=== PATIENT | female | born 1930 | race Caucasian/White ===

== ENCOUNTER 2020-08-01 00:55 | Inpatient (IN) | payer MEDICARE ==
[2020-08-01] MEDS ORDERED: SODIUM CHLORIDE 0.9% 500 ML 500 ML IV STA (01:08)
[2020-08-01] MEDS ORDERED: SODIUM CHLORIDE 0.9% 1,000 ML IV STA (01:08)
[2020-08-01] MEDS ORDERED: MORPHINE SULFATE 4 MG/ML SYRINGE IV STA (01:08)
--- NOTE | 2020-08-01 01:17 | ED ---
Fall HPI - General Stated Complaint: ankle injury Time Seen by Provider: 08/01/20 01:08 Source: EMS, RN notes reviewed, old records reviewed Limitations: no limitations - History of Present Illness Initial Comments: This is an 89-year-old female with no significant orthopedicmedical historycoming with fall history of falls. History of high blood pressure cholesterol, no blood thinners. Patient significant injury to right ankle Injury happened about an hour prior to arrival, patient had a slip and fall of 1 the bathroom after waking from sleep. Patient denying any significant pain on arrival to the emergency department no hitting her head or loss of consciousness or any other pain or injury aside from that right ankle MD Complaint: fall -: hour(s) Fall From: standing When Fall Occurred: 1 hour [employer] WORK[employer] Fall Witnessed: no Place Fall Occurred: home Loss of Consciousness: none Prolonged Down Time?: no Symptoms Prior to Fall: none Location - Extremities: Right: Ankle (severe deformity) Severity: severe Severity scale (1-10): 5 Quality: stabbing, tingling Context: tripped/slipped Associated Symptoms: denies - Related Data Home Medications Medication Instructions Recorded Confirmed Levothyroxine Sodium [Synthroid] 75 mcg PO HS 08/01/20 08/01/20 Lovastatin [Mevacor] 10 mg PO HS 08/01/20 08/01/20 Zolpidem [Ambien] 5 mg PO HS PRN 08/01/20 08/01/20 Allergies Allergy/AdvReac Type Severity Reaction Status Date / Time No Known Allergies Allergy Verified 08/01/20 01:18 Review of Systems ROS Statement: Those systems with pertinent positive or pertinent negative responses have been documented in the HPI. ROS Other: All systems not noted in ROS Statement are negative. General Exam - General Exam Comments Initial Comments: significant fracture dislocation of Right Ankle General appearance: alert, in no apparent distress Head exam: Present: atraumatic, normocephalic, normal inspection Eye exam: Present: normal appearance, PERRL, EOMI. Absent: scleral icterus, conjunctival injection, periorbital swelling ENT exam: Present: normal exam, mucous membranes moist Neck exam: Present: normal inspection. Absent: tenderness, meningismus, lymphadenopathy Respiratory exam: Present: normal lung sounds bilaterally. Absent: respiratory distress, wheezes, rales, rhonchi, stridor Cardiovascular Exam: Present: regular rate, normal rhythm, normal heart sounds. Absent: systolic murmur, diastolic murmur, rubs, gallop, clicks GI/Abdominal exam: Present: soft, normal bowel sounds. Absent: distended, tenderness, guarding, rebound, rigid Extremities exam: Present: normal inspection, full ROM, normal capillary refill. Absent: tenderness, pedal edema, joint swelling, calf tenderness Back exam: Present: normal inspection Neurological exam: Present: alert, oriented X3, CN II-XII intact Psychiatric exam: Present: normal affect, normal mood Skin exam: Present: warm, dry, intact, normal color. Absent: rash Course Vital Signs 08/01/20 00:56 Temperature 98.2 F Pulse Rate 86 Respiratory 14 Rate Blood Pressure 166/77 O2 Sat by Pulse 95 Oximetry - Reevaluation(s) Reevaluation #1: 08/01/20 02:16 attic record is reviewed Reevaluation #2: 08/01/20 02:16 ankle was reduced without significant distress, patient does have good distalas well as capillary refill - Consultations Consultation #1: spoke w Dr Jaimes re fracture and he will admit Procedures - Orthopedic Fracture Reduction Fracture #1 Consent Obtained: verbal consent Side: right Fracture Reduction Location: tibia, fibula Technique: direct manipulation, traction/counter-traction Post Reduction X-rays Demonstrate: acceptable reduction Post-Reduction Neuro Exam: intact Post-Reduction Vascular Exam: intact Splint Applied: Yes Patient Tolerated Procedure: well - Orthopedic Joint Reduction Joint #1 Consent Obtained: verbal consent Side: right Joint Reduction Location: ankle Technique Used: traction/counter-traction, direct manipulation Post-Reduction Neuro Exam: intact Post-Reduction Vascular Exam: intact Post Reduction X-Ray Obtained: Yes Post Reduction X-Ray Results: reduced Splint Applied: Yes Patient Tolerated Procedure: well Medical Decision Making - Medical Decision Making 89 female to the ER with positive right ankle fracture, tib-fib , trimalleolar fracture open with ankle dislocation, requiring ortho and surgical intervention - Lab Data Result diagrams: 08/01/20 01:22 08/01/20 01:22 Lab Results 08/01/20 08/01/20 08/01/20 Range/Units 01:22 01:22 01:22 WBC 7.6 (3.8-10.6) k/uL RBC 4.69 (3.80-5.40) m/uL Hgb 13.0 (11.4-16.0) gm/dL Hct 41.9 (34.0-46.0) % MCV 89.4 (80.0-100.0) fL MCH 27.8 (25.0-35.0) pg MCHC 31.1 (31.0-37.0) g/dL RDW 14.6 (11.5-15.5) % Plt Count 287 (150-450) k/uL MPV 8.1 Neutrophils % 72 % Lymphocytes % 14 % Monocytes % 8 % Eosinophils % 2 % Basophils % 2 % Neutrophils # 5.5 (1.3-7.7) k/uL Lymphocytes # 1.1 (1.0-4.8) k/uL Monocytes # 0.6 (0-1.0) k/uL Eosinophils # 0.2 (0-0.7) k/uL Basophils # 0.2 (0-0.2) k/uL PT 10.8 (9.0-12.0) sec INR 1.0 (<1.2) APTT 24.0 (22.0-30.0) sec Sodium 135 L (137-145) mmol/L Potassium 5.5 H (3.5-5.1) mmol/L Chloride 102 (98-107) mmol/L Carbon Dioxide 31 H (22-30) mmol/L Anion Gap 2 mmol/L BUN 28 H (7-17) mg/dL Creatinine 0.76 (0.52-1.04) mg/dL Est GFR (CKD-EPI)AfAm 81 (>60 ml/min/1.73 sqM) Est GFR (CKD-EPI)NonAf 70 (>60 ml/min/1.73 sqM) Glucose 103 H (74-99) mg/dL Calcium 10.3 H (8.4-10.2) mg/dL Phosphorus 3.8 (2.5-4.5) mg/dL Magnesium 2.5 H (1.6-2.3) mg/dL Total Bilirubin 0.7 (0.2-1.3) mg/dL AST 27 (14-36) U/L ALT 10 (4-34) U/L Alkaline Phosphatase 142 H (38-126) U/L Creatine Kinase 40 (30-135) U/L Total Protein 6.4 (6.3-8.2) g/dL Albumin 3.7 (3.5-5.0) g/dL - Radiology Data Radiology results: report reviewed (x-ray right ankle is tib-fib fracture likely trimalleolar with right ankle dislocation), image reviewed Disposition Clinical Impression: Fall, Open fracture of right tibia and fibula, Dislocation of right ankle joint Disposition: ADMITTED IP TO THIS [facility] Condition: Good Is patient prescribed a controlled substance at d/c from ED?: No Referrals: Leni Turner MD [Primary Care Provider] - 1-2 days
[2020-08-01 01:48] LABS: Basophils # (A) 0.2 k/uL (0-0.2); Basophils % (A) 2 %; Eosinophils # (A) 0.2 k/uL (0-0.7); Eosinophils % (A) 2 %; HCT 41.9 % (34.0-46.0); Lymphocytes # (A) 1.1 k/uL (1.0-4.8); Lymphocytes % (A) 14 %; MCH 27.8 pg (25.0-35.0); MCHC 31.1 g/dL (31.0-37.0); MCV 89.4 fL (80.0-100.0); Mean Platelet Volume 8.1; Monocytes # (A) 0.6 k/uL (0-1.0); Monocytes % (A) 8 %; Neutrophils # (A) 5.5 k/uL (1.3-7.7); Neutrophils % (A) 72 %; Platelet Count 287 k/uL (150-450); RBC 4.69 m/uL (3.80-5.40); RDW 14.6 % (11.5-15.5); WBC 7.6 k/uL (3.8-10.6)
[2020-08-01 01:56] LABS: Albumin 3.7 g/dL (3.5-5.0); Calcium 10.3 mg/dL (8.4-10.2); Phosphorus 3.8 mg/dL (2.5-4.5); Total Bilirubin 0.7 mg/dL (0.2-1.3); Total Protein 6.4 g/dL (6.3-8.2)
[2020-08-01 01:57] LABS: Prothrombin Time 10.8 sec (9.0-12.0)
[2020-08-01 01:58] LABS: Magnesium 2.5 mg/dL (1.6-2.3); Potassium 5.5 mmol/L (3.5-5.1)
--- NOTE | 2020-08-01 02:02 | XR ---
EXAM: XR Right Ankle Complete, 3 or More Views CLINICAL HISTORY: ITS.REASON XR Reason: fall TECHNIQUE: Frontal, lateral and oblique views of the right ankle. COMPARISON: No relevant prior studies available. IMPRESSION: Comminuted Fracture of the distal tibia and fibula with dislocation of the ankle joint. Likely trimalleolar fracture.
[2020-08-01] MEDS ORDERED: MORPHINE SULFATE 4 MG/ML SYRINGE IVP PRN (02:15)
[2020-08-01] MEDS ORDERED: ZOLPIDEM 10 MG TAB PO STA (03:17)
[2020-08-01] MEDS ORDERED: ZOLPIDEM 5 MG TAB PO STA (03:19)
[2020-08-01 04:27] LABS: Basophils # (A) 0.1 k/uL (0-0.2); Basophils % (A) 1 %; Eosinophils # (A) 0.1 k/uL (0-0.7); Eosinophils % (A) 1 %; HCT 37.3 % (34.0-46.0); HGB 11.8 gm/dL (11.4-16.0); Hypochromasia Slight; Lymphocytes # (A) 1.7 k/uL (1.0-4.8); Lymphocytes % (A) 16 %; MCH 28.5 pg (25.0-35.0); MCHC 31.7 g/dL (31.0-37.0); Mean Platelet Volume 8.3; Monocytes # (A) 0.6 k/uL (0-1.0); Monocytes % (A) 6 %; Neutrophils # (A) 7.7 k/uL (1.3-7.7); Neutrophils % (A) 74 %; Platelet Count 260 k/uL (150-450); RBC 4.14 m/uL (3.80-5.40); RDW 14.7 % (11.5-15.5); WBC 10.4 k/uL (3.8-10.6)
[2020-08-01] MEDS ORDERED: IV FLUID CONTINUATION 775 ML IV ONE (11:09)
[2020-08-01 11:10] LABS: Potassium 5.6 mmol/L (3.5-5.1)
[2020-08-01 12:04] LABS: African American GFR (CKD) >90 (>60 ml/min/1.73 sqM); Anion Gap 4 mmol/L; Blood Urea Nitrogen 21 mg/dL (7-17); Calcium 9.4 mg/dL (8.4-10.2); Carbon Dioxide 30 mmol/L (22-30); Chloride 105 mmol/L (98-107); Glucose 93 mg/dL (74-99); Non-African American GFR(CKD) 80 (>60 ml/min/1.73 sqM); Potassium 4.3 mmol/L (3.5-5.1); Sodium 139 mmol/L (137-145)
[2020-08-01] MEDS ORDERED: MIDAZOLAM 2 MG/2 ML VIAL ONE (12:46)
[2020-08-01] MEDS ORDERED: ceFAZolin 1,000 MG in SODIUM CHLORIDE 0.9% 1,000 ML IRRIGATION ONE (13:39)
[2020-08-01] MEDS ORDERED: LACTATED RINGERS 1,000 ML IV ONE (14:30)
[2020-08-01] MEDS ORDERED: traMADol 50 MG TAB PO PRN (15:31)
[2020-08-01] MEDS ORDERED: HYDROcodone/APAP 5-325MG 1 EACH TAB PO PRN (15:31)
[2020-08-01] MEDS ORDERED: NALOXONE 0.4 MG/ML 1 ML VIAL IV PRN (15:31)
[2020-08-01] MEDS ORDERED: ONDANSETRON 4 MG/2 ML VIAL IVP PRN (15:31)
[2020-08-01] MEDS ORDERED: ACETAMINOPHEN TAB 325 MG TAB PO PRN (15:31)
[2020-08-01] MEDS ORDERED: HYDROmorphone 0.2 MG/1 ML SYRINGE IVP PRN (15:31)
[2020-08-01] MEDS ORDERED: diazePAM 5 MG TAB PO PRN (15:31)
[2020-08-01] MEDS ORDERED: NA PHOS,M-B/NA PHOS,DI-BA 133 ML ENEMA RECTAL PRN (15:31)
[2020-08-01] MEDS ORDERED: HYDROmorphone 0.5 MG/0.5 ML SYRINGE IVP PRN ×2 (15:31)
[2020-08-01] MEDS ORDERED: HYDROcodone/APAP 10-325MG 1 EACH TAB PO PRN (15:31)
[2020-08-01] MEDS ORDERED: MAGNESIUM HYDROXIDE 2,400 MG/10 ML CUP PO PRN (15:31)
[2020-08-01] MEDS ORDERED: bisacodyL 10 MG SUPP RECTAL PRN (15:31)
--- NOTE | 2020-08-01 15:52 | P.HPOR ---
History of Present Illness H&P Date: 08/01/20 Chief Complaint: Right Ankle fracture Patient is an 89 yo female admitted through the ED early this morning 08/01/20 after a fall at home. She lives at home alone apparently and has a history of falls. She was transported to the ED after her most recent fall resulted in injury to her right ankle with pain, deformity an inability to ambulate. She was found to have an open fracture and admitted for orthopedic intervention. She has pain at the right ankle as expected. She has no numbness or other new complaints. Review of Systems All systems: negative Constitutional: Denies chills, Denies fever Eyes: denies blurred vision, denies pain Ears, nose, mouth and throat: Denies headache, Denies sore throat Cardiovascular: Denies chest pain, Denies shortness of breath Respiratory: Denies cough Gastrointestinal: Denies abdominal pain, Denies diarrhea, Denies nausea, Denies vomiting Genitourinary: Denies dysuria, Denies hematuria Musculoskeletal: Denies myalgias Integumentary: Denies pruritus, Denies rash Neurological: Denies numbness, Denies weakness Psychiatric: Denies anxiety, Denies depression Endocrine: Denies fatigue, Denies weight change Past Medical History Past Medical History: Hypertension, Thyroid Disorder History of Any Multi-Drug Resistant Organisms: None Reported Past Surgical History: Appendectomy, Orthopedic Surgery Past Psychological History: No Psychological Hx Reported Smoking Status: Never smoker Past Alcohol Use History: None Reported Past Drug Use History: None Reported Medications and Allergies Home Medications Medication Instructions Recorded Confirmed Type Calcium Carbonate/Vitamin D3 1 tab PO DAILY 08/01/20 08/01/20 History [Calcium 500-Vit D3 200 Tablet] Levothyroxine Sodium [Synthroid] 75 mcg PO HS 08/01/20 08/01/20 History Lovastatin [Mevacor] 10 mg PO HS 08/01/20 08/01/20 History Magnesium Chloride [Mag64] 64 mg PO DAILY 08/01/20 08/01/20 History Multivitamins, Thera [Multivitamin 1 tab PO DAILY 08/01/20 08/01/20 History (formulary)] [place]-3 Fatty Acids/Fish Oil [Fish 1 cap PO DAILY 08/01/20 08/01/20 History Oil 1,000 mg Softgel] Zolpidem [Ambien] 10 mg PO HS PRN 08/01/20 08/01/20 History Allergies Allergy/AdvReac Type Severity Reaction Status Date / Time No Known Allergies Allergy Verified 08/01/20 08:06 Physical Examination Inspection of right lower extremity and ankle shows reduced right ankle with 5cm laceration on medial aspect of ankle with exposed fracture of medial malleolus. There is mild bleeding. No evidence of infection. No other wounds or erythema. The knee is not swollen and nontender. The calf is SNT. Neuro vascular status is intact throughout right lower extremity Results Xrays of right ankle show a bimalleolar ankle fracture dislocation - Labs Labs: Abnormal Lab Results - Last 24 Hours (Table) 08/01/20 08/01/20 08/01/20 Range/Units 01:22 01:22 11:40 Sodium 135 L 136 L (137-145) mmol/L Potassium 5.5 H 5.6 H (3.5-5.1) mmol/L Carbon Dioxide 31 H (22-30) mmol/L BUN 28 H 21 H (7-17) mg/dL Glucose 103 H (74-99) mg/dL Calcium 10.3 H (8.4-10.2) mg/dL Magnesium 2.5 H (1.6-2.3) mg/dL Alkaline Phosphatase 142 H (38-126) U/L H & H 08/01/20 08/01/20 Range/Units 01:22 04:22 Hgb 13.0 11.8 (11.4-16.0) gm/dL Hct 41.9 37.3 (34.0-46.0) % Coagulation 08/01/20 Range/Units 01:22 INR 1.0 (<1.2) Result Diagrams: 08/01/20 04:22 08/01/20 11:40 - Diagnostic results Ankle/Foot x-ray: report reviewed, image reviewed Assessment and Plan (1) Open fracture of right tibia and fibula Narrative/Plan: Patient has been seen and reviewed by Dr. cho. He has recommended proceeding with surgical intervention including ORIF of right ankle. Plan is to proceed with surgery today after which she will be placed in splint and be nonweightbearing. Medicine will be consulted for medical management and she will need placement. Current Visit: Yes Status: Acute Priority: Medium Code(s): S82.201B - UNSP FX SHAFT OF RIGHT TIBIA, INIT FOR OPN FX TYPE I/2; S82.401B - UNSP FRACTURE OF SHAFT OF R FIBULA, INIT FOR OPN FX TYPE I/2 SNOMED Code(s): 238688937 Time with Patient: Less than 30
[2020-08-01] MEDS ORDERED: ZOLPIDEM 10 MG TAB PO PRN (16:40)
[2020-08-01] MEDS: LACTATED RINGERS 1,000 ML IV SCH (16:50)
[2020-08-01] MEDS: ASPIRIN 81 MG PO SCH (20:18)
[2020-08-01] MEDS: LEVOTHYROXINE 75 MCG TAB PO SCH (20:18)
[2020-08-01] MEDS: ATORVASTATIN 10 MG TAB PO SCH (20:18)
[2020-08-01] MEDS: SENNOSIDES-DOCUSATE SODIUM 1 EACH TAB PO SCH (20:18)
--- NOTE | 2020-08-01 23:02 | P.CONS ---
History of Present Illness - Reason for Consult Consult date: 08/01/20 Medical management Requesting physician: Nayan Jaimes - Chief Complaint Right ankle injury - History of Present Illness Consultation: This is a very pleasant 89-year-old patient of Dr. Leni Turner. Patient is taking care of for Plavix when she tried to jump from the [place] bed onto the road. She missed a step and took a fall injuring her right ankle. X-ray showed a comminuted fracture of the distal tibia and fibula with dislocation of the ankle joint. Likely trimalleolar fracture. Early today patient underwent surgical repair of the same. Dressing in place. Pain is controlled. No nausea vomiting. Patient normally slowly is able to get from the hospital he denies any cardiac history. Chronic stable medical conditions include hypertension, hypothyroid, insomnia. Arthritis. No chest pain or shortness of breath. Review of systems: GEN.: Tired EYES: None HEENT: Decreased hearing NECK: None RESPIRATORY: None CARDIOVASCULAR: None GASTROINTESTINAL: None GENITOURINARY: None MUSCULOSKELETAL: [Joint pains LYMPHATICS: None HEMATOLOGICAL: None PSYCHIATRY: None NEUROLOGICAL: None Past medical history to include: Hypertension, hypothyroid, insomnia osteoarthritis Social history: Lives alone. Sometimes uses a walker. No history of smoking or alcohol Family history: Reviewed, noncontributory to presentation Physical examination: VITAL SIGNS: 99.3, 82, 20, 151 x 68, 94% room air GENERAL: BMI 24.1, reclining in bed, awake. EYES: Pupils equal. Conjunctiva normal. HEENT: External appearance of nose and ears normal, oral cavity grossly normal., Decreased hearing NECK: JVD not raised; masses not palpable. HEART: First and second heart sounds are normal; no edema. LUNGS: Respiratory rate normal; clear to auscultation. ABDOMEN: Soft, nontender, liver spleen not palpable, no masses palpable. PSYCH: Alert and oriented x3; mood and affect normal. MUSCULAR skeletal: Evidence of OA in many joints, dressing over the right ankle NEUROLOGICAL: Cranial nerves grossly intact; no facial asymmetry, power and sensation grossly intact. LYMPHATICS: No lymph nodes palpable in the axilla and neck INVESTIGATIONS, reviewed in the clinical context: White count 10.4 hemoglobin 11.8 platelets 260 potassium 5. 6 repeat 4.3 creatinine 0.62 EKG tracing personally reviewed by me-normal sinus rhythm X-ray of the right ankle showing distal tibia-fibula and ankle joint dislocation Assessment: -Possible trimalleolar fracture of the right ankle joint seconded to fall. Status post surgical repair -Chronic gait dysfunction uses a walker at baseline Essential hypertension -Hypothyroid -Primary osteoarthritis Plan: Patient is IV Ancef. Aspirin for DVT prophylaxis. IV fluids. Home medications resumed. Pain medications in place. Care was discussed with the patient and questions answered. Thank you Dr. Jaimes Past Medical History Past Medical History: Hypertension, Thyroid Disorder History of Any Multi-Drug Resistant Organisms: None Reported Past Surgical History: Appendectomy, Orthopedic Surgery Past Psychological History: No Psychological Hx Reported Smoking Status: Never smoker Past Alcohol Use History: None Reported Past Drug Use History: None Reported - Past Family History Mother History Unknown: Yes Medications and Allergies Home Medications Medication Instructions Recorded Confirmed Type Calcium Carbonate/Vitamin D3 1 tab PO DAILY 08/01/20 08/01/20 History [Calcium 500-Vit D3 200 Tablet] Levothyroxine Sodium [Synthroid] 75 mcg PO HS 08/01/20 08/01/20 History Lovastatin [Mevacor] 10 mg PO HS 08/01/20 08/01/20 History Magnesium Chloride [Mag64] 64 mg PO DAILY 08/01/20 08/01/20 History Multivitamins, Thera [Multivitamin 1 tab PO DAILY 08/01/20 08/01/20 History (formulary)] [place]-3 Fatty Acids/Fish Oil [Fish 1 cap PO DAILY 08/01/20 08/01/20 History Oil 1,000 mg Softgel] Zolpidem [Ambien] 10 mg PO HS PRN 08/01/20 08/01/20 History Allergies Allergy/AdvReac Type Severity Reaction Status Date / Time No Known Allergies Allergy Verified 08/01/20 08:06 Physical Exam Vitals: Vital Signs Temp Pulse Pulse Pulse Resp BP BP 08/01/20 19:30 99.3 F 82 20 08/01/20 16:55 95 08/01/20 16:40 98 08/01/20 16:26 82 08/01/20 15:57 79 08/01/20 15:40 98.0 F 81 18 08/01/20 15:19 79 16 08/01/20 15:04 83 16 08/01/20 14:49 98.9 F 95 14 08/01/20 11:13 98.9 F 72 20 142/76 08/01/20 08:25 83 18 129/69 08/01/20 06:48 97.7 F 77 16 141/64 08/01/20 04:22 79 16 133/67 08/01/20 00:56 98.2 F 86 14 166/77 BP Pulse Ox 08/01/20 19:30 151/68 94 L 08/01/20 16:55 135/70 08/01/20 16:40 135/72 08/01/20 16:26 149/66 08/01/20 15:57 151/77 08/01/20 15:40 152/67 08/01/20 15:19 152/72 96 08/01/20 15:04 178/73 96 08/01/20 14:49 142/77 98 08/01/20 11:13 98 08/01/20 08:25 98 08/01/20 06:48 98 08/01/20 04:22 94 L 08/01/20 00:56 95 Intake and Output 08/01/20 08/01/20 08/01/20 06:59 14:59 22:59 Intake Total 1001 200 Output Total 25 Balance 976 200 Intake: IV 1001 200 Output: Estimated Blood Loss 25 Other: Voiding Method Bedpan Bedpan # Voids 1 Weight 65.771 kg 65.771 kg Results CBC & Chem 7: 08/01/20 04:22 08/01/20 11:40 Labs: Abnormal Lab Results - Last 24 Hours (Table) 08/01/20 08/01/20 08/01/20 Range/Units 01:22 01:22 11:40 Sodium 135 L 136 L (137-145) mmol/L Potassium 5.5 H 5.6 H (3.5-5.1) mmol/L Carbon Dioxide 31 H (22-30) mmol/L BUN 28 H 21 H (7-17) mg/dL Glucose 103 H (74-99) mg/dL Calcium 10.3 H (8.4-10.2) mg/dL Magnesium 2.5 H (1.6-2.3) mg/dL Alkaline Phosphatase 142 H (38-126) U/L
[2020-08-02] MEDS: LACTATED RINGERS 1,000 ML IV SCH ×3 (02:11→22:37)
--- NOTE | 2020-08-02 02:54 | OP ---
OPERATIVE REPORT DATE OF PROCEDURE: August 01, 2020 SURGEON: Nayan Jaimes MD. VACUUM COOKER OPERATOR: Juanjo COMBS. PREOPERATIVE DIAGNOSIS: Right open trimalleolar ankle fracture. POSTOPERATIVE DIAGNOSIS: Right open trimalleolar ankle fracture. PROCEDURE PERFORMED: 1. Right open reduction internal fixation open trimalleolar ankle fracture. 2. Irrigation, debridement and primary closure of open fracture wound. ANESTHESIA: Spinal with sedation. ESTIMATED BLOOD LOSS: 25 mL. TOURNIQUET: Tourniquet time was 39 minutes at 250 mmHg. DRAINS: None. COMPLICATIONS: None apparent. DISPOSITION: Postanesthesia care unit. INDICATIONS: Jennie is a very pleasant 89-year-old female who is an independent ambulator at her home. She does live alone. Yesterday, she slipped and she fell early in the evening and had immediate pain in the right ankle. She did note that her bone was sticking through the skin as well. She was then brought to [facility] via ambulance. Workup including x-rays revealed an open trimalleolar ankle fracture. The open wound was approximately 5 cm. It appeared it was a clean wound, however. I was notified at approximately 2:30 in the morning. The fracture was easily reduced by the ER staff and the wound was provisionally irrigated in the emergency department with a clean wet-to- dry dressing was placed and she was placed into a splint to hold the reduction. She was admitted to [facility]. Plan was to expeditiously take her to the OR as soon as possible this morning. The risks of procedure were discussed with her in detail. These risks include, but are not limited to risk of infection, nerve damage, bleeding, pain, and a small risk of deep vein thrombosis which could lead to fatal pulmonary embolism. Further risks include deep infection secondary to the open wound and failure of the fracture to heal, which could necessitate further surgery. All of her questions with regard to the risks of procedure were answered to her satisfaction. Appropriate informed consent was obtained. DESCRIPTION OF THE PROCEDURE: The patient was identified in preoperative holding area. Surgical site was marked by both the patient and myself. She was given 2 grams of Ancef IV for prophylactic purposes. She was then transferred to the operative suite. She was placed supine on the operating room table. Spinal anesthetic was then administered, dosed per the anesthesia department without apparent complication. The patient was then placed supine on the operating room table. A bump was placed under the right hip to aid in exposure to the lateral malleolus. The tourniquet was then placed high on the right upper thigh well-padded in preparation for surgery. The patient's right lower extremity was then prepped and draped in usual sterile fashion. Standard surgical pause undertaken to ensure that we were operating on the correct site and that appropriate preoperative antibiotics had been given. All staff in the room were in agreement and we proceeded. I started medially. She did have a 5 cm clean open wound. The skin was viable. There was not any dirt in the wound. It was quite clean. I was able to inspect the joint. She did have a small chondral defect on the talus, but it was quite small 1 cm x 1 cm. The right remaining part of the talus and the tibia were intact and the cartilage was in good condition. I then thoroughly irrigated the joint with a liter of sterile saline solution with antibiotic added. We then proceeded to fix the medial malleolus first. The saphenous vein and saphenous nerve were easily identified in the anterior aspect of the open wound. They were intact with no evidence of damage. I was then able to fairly easily reduce the medial malleolus fracture. Due to the size of the open wound, I had very good exposure just through the open wound itself. I was able to place a [id number] clamp on the reduction. Reduction was checked with the fluoroscopy. I then placed two 1.25 partially-threaded K-wires in a parallel manner. Their placement was checked with fluoroscopy. I then placed two 42 mm x 4 mm partially- threaded cannulated screws over the threaded guide pins. These had excellent purchase in bone and provided good compression and reduction of the medial malleolus fragment. Again, the reduction and the placement of the screws was confirmed with fluoroscopic imaging. This stabilized the ankle quite well. I then proceeded with fixation for the lateral malleolus fracture. This was a short oblique Huizar B fracture. Her bone quality was quite poor. We then made an approximate 10 cm incision along the posterior third of the fibula in line with the fibula. Dissection was then carried down sharply to the lateral border of the fibula. Great care was taken to minimize the periosteal dissection as to preserve as much blood supply to the bone as possible. Again, her bone quality was not very good. Provisional reduction, however, was done with a lobster claw. This was placed very gently. I was able to get a good cortical read on the fracture laterally. Fluoroscopy was brought in to ensure that the mortise was anatomically reduced and it was. I chose a 6 hole Synthes 1/3 tubular plate. I did contour the distal aspect of the plate to curve around the distal aspect of the lateral malleolus. I initially started by trying to place a 3.5 mm bicortical nonlocking screw proximal to the fracture. Again, her bone quality was very poor. I then made a decision to place a syndesmotic screws for proximal fixation to go through the fibula and into the tibia to gain more fixation due to her poor bone quality. So I placed a 3.5 mm cortical screw through the plate and through the fibula and through both cortices of the tibia. This gave me good provisional fixation of the plate. This buttressed it laterally quite nicely as well. I then placed a 3.5 mm bicortical locking screw distally in the plate as well. I then proceeded to place 2 more 3.5 mm syndesmotic screws through the proximal 2 holes in the plate. Again, these were placed through the fibula and into the tibia to gain better fixation with the screws. The fixation was quite good for all 3 of the syndesmotic screws. All 3 of the syndesmotic screws were placed through both cortices of the fibula and both cortices of the tibia. Again, fluoroscopic imaging was done to confirm their placement. The distal part of the lateral malleolus had very poor bone quality. I did attempt to place a second screw distally in the plate and the bone quality was so poor that I did not feel that it was providing any good fixation. I then stressed the ankle. The ankle was very stable with the fixation that I did have. External rotation stress at the medial clear space did not widen at all. At this point, I felt good with fixation and proceeded with closure. The tourniquet was then deflated. The total tourniquet time for the procedure was 39 minutes at 250 mmHg. The subcutaneous tissue was then again irrigated with sterile saline solution with antibiotic added. Subcutaneous tissue closed with 2-0 Vicryl interrupted suture. The skin was closed with 3-0 nylon interrupted suture. Both the lateral and medial wounds closed quite nicely without any undue pressure. Sterile compressive dressing was then applied. She was then placed into a posterior molded splint with side stirrups. All sponge and needle counts were deemed correct prior to closure. The patient tolerated the procedure without apparent complication. She was transferred to recovery room in stable condition. JASPAL / YOVANNY: [id number] /
[2020-08-02] MEDS: MAGNESIUM OXIDE 400 MG TAB PO SCH (08:53)
[2020-08-02] MEDS: ASPIRIN 81 MG PO SCH ×2 (08:59→21:38)
[2020-08-02] MEDS: CALCIUM CARB-VIT D 500MG-200UN 1 EACH TAB PO SCH (08:59)
[2020-08-02] MEDS ORDERED: MULTIVITAMINS, THERA 1 EACH TAB PO SCH (09:00)
[2020-08-02] MEDS ORDERED: NON FORMULARY DRUG (Omega-3 Fatty Acids/Fish Oil [Fish Oil 1,000 Mg Softgel] 1 EACH Capsul PO SCH (09:00)
--- NOTE | 2020-08-02 09:50 | P.PN ---
Subjective Progress Note Date: 08/02/20 Principal diagnosis: Right ankle fracture Patient is seen at bedside this morning. She is postop day #1 from ORIF right ankle fracture. Her pain is controlled and denies any new complaints. She denies numbness, tingling or calf pain. Review of systems is negative for fever, chills, chest pain, shortness of breath or other Objective - Vital Signs Vital signs: Vital Signs Temp 98.5 F 08/02/20 00:30 Pulse 55 L 08/02/20 00:30 Resp 20 08/02/20 00:30 BP 139/71 08/02/20 00:30 Pulse Ox 97 08/02/20 00:30 Intake & Output 08/01/20 08/02/20 08/02/20 18:59 06:59 18:59 Intake Total 1201 Output Total 25 Balance 1176 Weight 65.771 kg Intake: IV 1201 Output: Estimated Blood Loss 25 Other: Voiding Method Bedpan Bedpan # Voids 1 - Exam Inspection shows well padded splint in place. No evidence of active bleeding or drainage. Neurovascular status is intact throughout the lower extremity with motor and sensation. She can wiggle all toes and less than 2 second cap refill is present. - Constitutional General appearance: Present: no acute distress - Labs CBC & Chem 7: 08/01/20 04:22 08/01/20 11:40 Labs: Abnormal Lab Results - Last 24 Hours (Table) 08/01/20 08/01/20 Range/Units 01:22 11:40 Sodium 136 L (137-145) mmol/L Potassium 5.6 H (3.5-5.1) mmol/L BUN 21 H (7-17) mg/dL Assessment and Plan (1) Open fracture of right tibia and fibula Narrative/Plan: Continue pain management, DVT prophylaxis, PT- nonweightbearing, and medical management. Expect transfer to [facility] in next few days. Current Visit: Yes Status: Acute Priority: Medium Code(s): S82.201B - UNSP FX SHAFT OF RIGHT TIBIA, INIT FOR OPN FX TYPE I/2; S82.401B - UNSP FRACTURE OF SHAFT OF R FIBULA, INIT FOR OPN FX TYPE I/2 SNOMED Code(s): 904899016 Time with Patient: Less than 30
--- NOTE | 2020-08-02 12:03 | XR ---
Fluoroscopy History: RT ANKLE lateral open trimal fx. Dr. Jaimes. 3 images scanned. Fluoro time: 18 sec.
--- NOTE | 2020-08-02 20:43 | P.PN ---
Progress Note - Text Progress Note Date: 08/02/20 - Chief Complaint Right ankle injury - History of Present Illness Consultation: This is a very pleasant 89-year-old patient of Dr. Leni Turner. Patient is taking care of for Plavix when she tried to jump from the [place] bed onto the road. She missed a step and took a fall injuring her right ankle. X-ray showed a comminuted fracture of the distal tibia and fibula with dislocation of the ankle joint. Likely trimalleolar fracture. Early today patient underwent surgical repair of the same. Dressing in place. Pain is controlled. No nausea vomiting. Patient normally slowly is able to get from the hospital he denies any cardiac history. Chronic stable medical conditions include hypertension, hypothyroid, insomnia. Arthritis. No chest pain or shortness of breath. Today-laying in bed. Intermittently confused. Eating occasionally. Pain control. Review of systems: Was done for constitutional, cardiovascular, GI, pulmonary. relevant finding as above Active Medications Acetaminophen (Acetaminophen Tab 325 Mg Tab) 650 mg PO Q4HR PRN PRN Reason: Pain Scale 1 to 5 Hydrocodone Bitart/Acetaminophen (Hydrocodone/Apap 5-325mg 1 Each Tab) 1 each PO Q6HR PRN PRN Reason: Pain Scale 1 to 5 Hydrocodone Bitart/Acetaminophen (Hydrocodone/Apap 10-325mg 1 Each Tab) 1 each PO Q6H PRN PRN Reason: Pain Scale 6 to 10 Aspirin (Aspirin 81 Mg) 81 mg PO BID [facility] Last Admin: 08/02/20 08:59 Dose: Not Given Documented by: Atorvastatin Calcium (Atorvastatin 10 Mg Tab) 10 mg PO HS [facility] Last Admin: 08/01/20 20:18 Dose: 10 mg Documented by: Bisacodyl (Bisacodyl 10 Mg Supp) 10 mg RECTAL DAILY PRN PRN Reason: Constipation Calcium Carbonate (Calcium Carb-Vit D 500mg-200un 1 Each Tab) 1 each PO DAILY [facility] Last Admin: 08/02/20 08:59 Dose: Not Given Documented by: Diazepam (Diazepam 5 Mg Tab) 2.5 mg PO Q8HR PRN PRN Reason: Mild Spasms Hydromorphone HCl (Hydromorphone 0.2 Mg/1 Ml Syringe) 0.2 mg IVP Q3HR PRN PRN Reason: Pain Scale 4 to 6 Hydromorphone HCl (Hydromorphone 0.5 Mg/0.5 Ml Syringe) 0.125 mg IVP Q3HR PRN PRN Reason: Pain Scale 1 to 3 Hydromorphone HCl (Hydromorphone 0.5 Mg/0.5 Ml Syringe) 0.5 mg IVP Q3HR PRN PRN Reason: Pain Scale 7 to 10 Cefazolin Sodium 1,000 mg/ (Sodium Chloride) 50 mls @ 100 mls/hr IVPB Q8HR [facility] Last Admin: 08/02/20 15:19 Dose: Not Given Documented by: Lactated Ringer's (Lactated Ringers) 1,000 mls @ 100 mls/hr IV .Q10H [facility] Last Admin: 08/02/20 15:19 Dose: Not Given Documented by: Levothyroxine Sodium (Levothyroxine 75 Mcg Tab) 75 mcg PO HS [facility] Last Admin: 08/01/20 20:18 Dose: 75 mcg Documented by: Magnesium Hydroxide (Magnesium Hydroxide 2,400 Mg/10 Ml Cup) 2,400 mg PO DAILY PRN PRN Reason: Constipation Magnesium Oxide (Magnesium Oxide 400 Mg Tab) 400 mg PO DAILY [facility] Last Admin: 08/02/20 08:53 Dose: Not Given Documented by: Morphine Sulfate (Morphine Sulfate 4 Mg/Ml Syringe) 4 mg IVP Q4HR PRN PRN Reason: Pain Multivitamins (Multivitamins, Thera 1 Each Tab) 1 each PO DAILY@1200 [facility] Naloxone HCl (Naloxone 0.4 Mg/Ml 1 Ml Vial) 0.2 mg IV Q2M PRN PRN Reason: Opioid Reversal Ondansetron HCl (Ondansetron 4 Mg/2 Ml Vial) 4 mg IVP Q8HR PRN PRN Reason: Nausea And Vomiting Senna/Docusate Sodium (Sennosides-Docusate Sodium 1 Each Tab) 2 each PO HS [facility] Last Admin: 08/01/20 20:18 Dose: 2 each Documented by: Sodium Biphosphate/Sodium Phosphate (Na Phos,M-B/Na Phos,Di-Ba 133 Ml Enema) 133 ml RECTAL DAILY PRN PRN Reason: Constipation Tramadol HCl (Tramadol 50 Mg Tab) 50 mg PO Q6HR PRN PRN Reason: Pain Scale 1 to 5 Zolpidem Tartrate (Zolpidem 10 Mg Tab) 10 mg PO HS PRN PRN Reason: Insomnia Last Admin: 08/01/20 21:27 Dose: 10 mg Documented by: Physical examination: VITAL SIGNS: 98.7, 108, 20, 140/63, 95% room air GENERAL: BMI 24.1, laying in bed EYES: Pupils equal. Conjunctiva normal. NECK: JVD not raised; masses not palpable. HEART: First and second heart sounds are normal; no edema. LUNGS: Respiratory rate normal; clear to auscultation. ABDOMEN: Soft, nontender, liver spleen not palpable, no masses palpable. PSYCH: Answering questions MUSCULAR skeletal: Evidence of OA in many joints, dressing over the right ankle INVESTIGATIONS, reviewed in the clinical context: White count 10.4 hemoglobin 11.8 platelets 260 potassium 5. 6 repeat 4.3 creatinine 0.62 EKG tracing personally reviewed by me-normal sinus rhythm X-ray of the right ankle showing distal tibia-fibula and ankle joint dislocation Assessment: -Possible trimalleolar fracture of the right ankle joint seconded to fall. 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 Aspirin for DVT prophylaxis. Other medications to continue. Thank you Dr. Jaimes
[2020-08-02] MEDS: ATORVASTATIN 10 MG TAB PO SCH (21:38)
[2020-08-02] MEDS: LEVOTHYROXINE 75 MCG TAB PO SCH (21:38)
[2020-08-02] MEDS: SENNOSIDES-DOCUSATE SODIUM 1 EACH TAB PO SCH (21:38)
[2020-08-03] MEDS: LACTATED RINGERS 1,000 ML IV SCH ×2 (08:48→18:03)
--- NOTE | 2020-08-03 09:00 | P.PN ---
Subjective Progress Note Date: 08/03/20 Principal diagnosis: Right ankle fracture Patient is seen at bedside this morning. She is postop day #2 from ORIF right ankle fracture. Her pain is controlled and denies any new complaints. She denies numbness, tingling or calf pain. Review of systems is negative for fever, chills, chest pain, shortness of breath or other Objective - Vital Signs Vital signs: Vital Signs Temp 98.2 F 08/03/20 07:47 Pulse 110 H 08/03/20 07:47 Resp 20 08/03/20 07:47 BP 150/63 08/03/20 07:47 Pulse Ox 96 08/03/20 07:47 Intake & Output 08/02/20 08/03/20 08/03/20 18:59 06:59 18:59 Other: Voiding Method Bedpan Incontinent # Voids 1 5 # Bowel Movements 1 - Exam Inspection shows well padded splint in place. No evidence of active bleeding or drainage. Neurovascular status is intact throughout the lower extremity with motor and sensation. She can wiggle all toes and less than 2 second cap refill is present. - Constitutional General appearance: Present: no acute distress - Labs CBC & Chem 7: 08/01/20 04:22 08/01/20 11:40 Assessment and Plan (1) Open fracture of right tibia and fibula Narrative/Plan: Continue pain management, DVT prophylaxis, PT- nonweightbearing, and medical management. Expect transfer to [facility] in next 1-2 days. Current Visit: Yes Status: Acute Priority: Medium Code(s): S82.201B - UNSP FX SHAFT OF RIGHT TIBIA, INIT FOR OPN FX TYPE I/2; S82.401B - UNSP FRACTURE OF SHAFT OF R FIBULA, INIT FOR OPN FX TYPE I/2 SNOMED Code(s): 286588925 Time with Patient: Less than 30
[2020-08-03] MEDS: CALCIUM CARB-VIT D 500MG-200UN 1 EACH TAB PO SCH (09:09)
[2020-08-03] MEDS: MAGNESIUM OXIDE 400 MG TAB PO SCH (09:09)
[2020-08-03] MEDS: ASPIRIN 81 MG PO SCH ×2 (09:09→20:47)
[2020-08-03] MEDS ORDERED: ZOLPIDEM 5 MG TAB PO PRN (12:41)
[2020-08-03] MEDS: MULTIVITAMINS, THERA 1 EACH TAB PO SCH (12:45)
[2020-08-03] MEDS: ATORVASTATIN 10 MG TAB PO SCH (20:47)
[2020-08-03] MEDS: LEVOTHYROXINE 75 MCG TAB PO SCH (20:47)
[2020-08-03] MEDS: SENNOSIDES-DOCUSATE SODIUM 1 EACH TAB PO SCH (20:47)
--- NOTE | 2020-08-03 21:07 | P.PN ---
Progress Note - Text Progress Note Date: 08/03/20 - Chief Complaint Right ankle injury - History of Present Illness Consultation: This is a very pleasant 89-year-old patient of Dr. Leni Turner. Patient is taking care of for Plavix when she tried to jump from the [place] bed onto the road. She missed a step and took a fall injuring her right ankle. X-ray showed a comminuted fracture of the distal tibia and fibula with dislocation of the ankle joint. Likely trimalleolar fracture. Early today patient underwent surgical repair of the same. Dressing in place. Pain is controlled. No nausea vomiting. Patient normally slowly is able to get from the hospital he denies any cardiac history. Chronic stable medical conditions include hypertension, hypothyroid, insomnia. Arthritis. No chest pain or shortness of breath. Today-patient slept rather late into this morning. Her home dose of Ambien is significant. Had been intermittently delirious. Now starting to wake up in a somewhat this date morning Review of systems: Was done for constitutional, cardiovascular, GI, pulmonary. relevant finding as above Active Medications Acetaminophen (Acetaminophen Tab 325 Mg Tab) 650 mg PO Q4HR PRN PRN Reason: Pain Scale 1 to 5 Hydrocodone Bitart/Acetaminophen (Hydrocodone/Apap 5-325mg 1 Each Tab) 1 each PO Q6HR PRN PRN Reason: Pain Scale 1 to 5 Hydrocodone Bitart/Acetaminophen (Hydrocodone/Apap 10-325mg 1 Each Tab) 1 each PO Q6H PRN PRN Reason: Pain Scale 6 to 10 Aspirin (Aspirin 81 Mg) 81 mg PO BID [facility] Last Admin: 08/03/20 20:47 Dose: 81 mg Documented by: Atorvastatin Calcium (Atorvastatin 10 Mg Tab) 10 mg PO HS [facility] Last Admin: 08/03/20 20:47 Dose: 10 mg Documented by: Bisacodyl (Bisacodyl 10 Mg Supp) 10 mg RECTAL DAILY PRN PRN Reason: Constipation Calcium Carbonate (Calcium Carb-Vit D 500mg-200un 1 Each Tab) 1 each PO DAILY [facility] Last Admin: 08/03/20 09:09 Dose: 1 each Documented by: Diazepam (Diazepam 5 Mg Tab) 2.5 mg PO Q8HR PRN PRN Reason: Mild Spasms Hydromorphone HCl (Hydromorphone 0.2 Mg/1 Ml Syringe) 0.2 mg IVP Q3HR PRN PRN Reason: Pain Scale 4 to 6 Hydromorphone HCl (Hydromorphone 0.5 Mg/0.5 Ml Syringe) 0.125 mg IVP Q3HR PRN PRN Reason: Pain Scale 1 to 3 Hydromorphone HCl (Hydromorphone 0.5 Mg/0.5 Ml Syringe) 0.5 mg IVP Q3HR PRN PRN Reason: Pain Scale 7 to 10 Cefazolin Sodium 1,000 mg/ (Sodium Chloride) 50 mls @ 100 mls/hr IVPB Q8HR [facility] Last Admin: 08/03/20 16:27 Dose: 100 mls/hr Documented by: Lactated Ringer's (Lactated Ringers) 1,000 mls @ 100 mls/hr IV .Q10H [facility] Last Admin: 08/03/20 18:03 Dose: 100 mls/hr Documented by: Levothyroxine Sodium (Levothyroxine 75 Mcg Tab) 75 mcg PO [facility] Last Admin: 08/03/20 20:47 Dose: 75 mcg Documented by: Magnesium Hydroxide (Magnesium Hydroxide 2,400 Mg/10 Ml Cup) 2,400 mg PO DAILY PRN PRN Reason: Constipation Magnesium Oxide (Magnesium Oxide 400 Mg Tab) 400 mg PO DAILY [facility] Last Admin: 08/03/20 09:09 Dose: 400 mg Documented by: Morphine Sulfate (Morphine Sulfate 4 Mg/Ml Syringe) 4 mg IVP Q4HR PRN PRN Reason: Pain Multivitamins (Multivitamins, Thera 1 Each Tab) 1 each PO DAILY@1200 [facility] Last Admin: 08/03/20 12:45 Dose: 1 each Documented by: Naloxone HCl (Naloxone 0.4 Mg/Ml 1 Ml Vial) 0.2 mg IV Q2M PRN PRN Reason: Opioid Reversal Ondansetron HCl (Ondansetron 4 Mg/2 Ml Vial) 4 mg IVP Q8HR PRN PRN Reason: Nausea And Vomiting Senna/Docusate Sodium (Sennosides-Docusate Sodium 1 Each Tab) 2 each PO [facility] Last Admin: 08/03/20 20:47 Dose: 2 each Documented by: Sodium Biphosphate/Sodium Phosphate (Na Phos,M-B/Na Phos,Di-Ba 133 Ml Enema) 133 ml RECTAL DAILY PRN PRN Reason: Constipation Tramadol HCl (Tramadol 50 Mg Tab) 50 mg PO Q6HR PRN PRN Reason: Pain Scale 1 to 5 Zolpidem Tartrate (Zolpidem 5 Mg Tab) 2.5 mg PO HS PRN PRN Reason: Insomnia Physical examination: VITAL SIGNS: 98.2, 97, 18, 108/66, 91% room air GENERAL: Laying in bed, sleepy EYES: Pupils equal. Conjunctiva normal. NECK: JVD not raised; masses not palpable. HEART: First and second heart sounds are normal; no edema. LUNGS: Respiratory rate normal; clear to auscultation. ABDOMEN: Soft, nontender, liver spleen not palpable, no masses palpable. PSYCH: Answering questions MUSCULAR skeletal: Evidence of OA in many joints, dressing over the right ankle INVESTIGATIONS, reviewed in the clinical context: White count 10.4 hemoglobin 11.8 platelets 260 potassium 5. 6 repeat 4.3 creatinine 0.62 EKG tracing personally reviewed by me-normal sinus rhythm X-ray of the right ankle showing distal tibia-fibula and ankle joint dislocation Assessment: -Possible trimalleolar fracture of the right ankle joint seconded to fall. 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 Aspirin for DVT prophylaxis. Cutback Ambien dose to 2.5 mg daily at bedtime. Thank you Dr. Jaimes
[2020-08-03] MEDS: ZOLPIDEM 5 MG TAB PO SCH (22:57)
[2020-08-04] MEDS: LACTATED RINGERS 1,000 ML IV SCH ×2 (04:13→14:33)
[2020-08-04 07:11] LABS: Basophils % (A) 1 %; Eosinophils # (A) 0.1 k/uL (0-0.7); Eosinophils % (A) 2 %; HCT 33.3 % (34.0-46.0); HGB 10.5 gm/dL (11.4-16.0); Hypochromasia Slight; Lymphocytes # (A) 1.4 k/uL (1.0-4.8); Lymphocytes % (A) 18 %; MCHC 31.5 g/dL (31.0-37.0); MCV 88.8 fL (80.0-100.0); Mean Platelet Volume 8.2; Monocytes # (A) 0.7 k/uL (0-1.0); Monocytes % (A) 9 %; Neutrophils # (A) 5.4 k/uL (1.3-7.7); Neutrophils % (A) 68 %; Platelet Count 231 k/uL (150-450); RBC 3.75 m/uL (3.80-5.40); RDW 14.7 % (11.5-15.5)
[2020-08-04] MEDS: ASPIRIN 81 MG PO SCH ×2 (08:46→20:25)
[2020-08-04] MEDS: CALCIUM CARB-VIT D 500MG-200UN 1 EACH TAB PO SCH (08:46)
[2020-08-04] MEDS: MULTIVITAMINS, THERA 1 EACH TAB PO SCH (08:46)
[2020-08-04] MEDS: MAGNESIUM OXIDE 400 MG TAB PO SCH (08:46)
--- NOTE | 2020-08-04 08:59 | P.PN ---
Subjective Progress Note Date: 08/04/20 Principal diagnosis: Status post right ankle ORIF The patient is an 89 year old female who is status post right ankle ORIF. Today is post op day #3. Her pain is controlled and denies any new complaints. She denies numbness, tingling or calf pain. She also denies fever, chills, chest pain, shortness of breath or abdominal pain. The patient is still confused and a little agitated this morning. Objective - Vital Signs Vital signs: Vital Signs Temp 97.9 F 08/04/20 08:00 Pulse 105 H 08/04/20 08:00 Resp 19 08/04/20 08:00 BP 132/63 08/04/20 08:00 Pulse Ox 90 L 08/04/20 08:00 Intake & Output 08/03/20 08/04/20 08/04/20 18:59 06:59 18:59 Other: Voiding Method Diaper Diaper Incontinent # Voids 1 1 # Bowel Movements 1 - Exam The patient is an 89 y/o female in no acute distress. She is alert and oriented x2. Inspection of the right lower extremity reveals a well padded splint in place. No evidence of active bleeding or drainage. Neurovascular status is intact throughout the lower extremity with motor and sensation. She can wiggle all toes and less than 2 second cap refill is present. - Labs CBC & Chem 7: 08/04/20 06:18 08/01/20 11:40 Labs: Abnormal Lab Results - Last 24 Hours (Table) 08/04/20 Range/Units 06:18 RBC 3.75 L (3.80-5.40) m/uL Hgb 10.5 L (11.4-16.0) gm/dL Hct 33.3 L (34.0-46.0) % Assessment and Plan (1) Dislocation of right ankle joint Current Visit: Yes Status: Acute Code(s): S93.04XA - DISLOCATION OF RIGHT ANKLE JOINT, INITIAL ENCOUNTER SNOMED Code(s): 631948057 (2) Fall Current Visit: Yes Status: Acute Code(s): W19.XXXA - UNSPECIFIED FALL, INITIAL ENCOUNTER SNOMED Code(s): 1904422 (3) Open fracture of right tibia and fibula Current Visit: Yes Status: Acute Priority: Medium Code(s): S82.201B - UNSP FX SHAFT OF RIGHT TIBIA, INIT FOR OPN FX TYPE I/2; S82.401B - UNSP FRACTURE OF SHAFT OF R FIBULA, INIT FOR OPN FX TYPE I/2 SNOMED Code(s): 394126638 (4) Status post ORIF of fracture of ankle Current Visit: Yes Status: Acute Code(s): Z98.890 - OTHER SPECIFIED POSTPROCEDURAL STATES; Z87.81 - PERSONAL HISTORY OF (HEALED) TRAUMATIC FRACTURE SNOMED Code(s): 689992546 Plan: 1. Continue pain control 2. Anticoagulation with Aspirin 81 mg BID 3. Continue physical therapy and ambulation. Non-weightbearing to the right lower extremity 4. Anticipate discharge to skilled rehab, likely on Thursday. She is orthopedically stable for discharge.
[2020-08-04 11:47] LABS: African American GFR (CKD) 99.5 (60.0-200.0); Anion Gap 6.4 mmol/L (4.00-12.00); Calcium 8.8 mg/dL (8.7-10.3); Carbon Dioxide 31.6 mmol/L (21.6-31.8); Non-African American GFR(CKD) 85.8 (60.0-200.0)
[2020-08-04] MEDS ORDERED: POTASSIUM CHLORIDE ER 20 MEQ TAB.ER PO STA (12:10)
[2020-08-04] MEDS ORDERED: Potassium Replacement Protocol 1 EACH MISC MISCELLANE PRN (12:39)
[2020-08-04] MEDS ORDERED: POTASSIUM CHLORIDE ER 20 MEQ TAB.ER PO SCH (13:00)
[2020-08-04] MEDS: LEVOTHYROXINE 75 MCG TAB PO SCH (20:24)
[2020-08-04] MEDS: ZOLPIDEM 5 MG TAB PO SCH (20:24)
[2020-08-04] MEDS: ATORVASTATIN 10 MG TAB PO SCH (20:25)
[2020-08-04] MEDS: SENNOSIDES-DOCUSATE SODIUM 1 EACH TAB PO SCH (20:25)
--- NOTE | 2020-08-04 21:12 | P.PN ---
Progress Note - Text Progress Note Date: 08/04/20 - Chief Complaint Right ankle injury - History of Present Illness Consultation: This is a very pleasant 89-year-old patient of Dr. Leni Turner. Patient is taking care of for Plavix when she tried to jump from the [place] bed onto the road. She missed a step and took a fall injuring her right ankle. X-ray showed a comminuted fracture of the distal tibia and fibula with dislocation of the ankle joint. Likely trimalleolar fracture. Early today patient underwent surgical repair of the same. Dressing in place. Pain is controlled. No nausea vomiting. Patient normally slowly is able to get from the hospital he denies any cardiac history. Chronic stable medical conditions include hypertension, hypothyroid, insomnia. Arthritis. No chest pain or shortness of breath. Today-less sleepy this morning often dose of Ambien was cutback. Oral intake improved. Pain control. Review of systems: Was done for constitutional, cardiovascular, GI, pulmonary. relevant finding as above Active Medications Acetaminophen (Acetaminophen Tab 325 Mg Tab) 650 mg PO Q4HR PRN PRN Reason: Pain Scale 1 to 5 Hydrocodone Bitart/Acetaminophen (Hydrocodone/Apap 5-325mg 1 Each Tab) 1 each PO Q6HR PRN PRN Reason: Pain Scale 1 to 5 Hydrocodone Bitart/Acetaminophen (Hydrocodone/Apap 10-325mg 1 Each Tab) 1 each PO Q6H PRN PRN Reason: Pain Scale 6 to 10 Aspirin (Aspirin 81 Mg) 81 mg PO BID [facility] Last Admin: 08/04/20 20:25 Dose: 81 mg Documented by: Atorvastatin Calcium (Atorvastatin 10 Mg Tab) 10 mg PO HS [facility] Last Admin: 08/04/20 20:25 Dose: 10 mg Documented by: Bisacodyl (Bisacodyl 10 Mg Supp) 10 mg RECTAL DAILY PRN PRN Reason: Constipation Calcium Carbonate (Calcium Carb-Vit D 500mg-200un 1 Each Tab) 1 each PO DAILY [facility] Last Admin: 08/04/20 08:46 Dose: 1 each Documented by: Diazepam (Diazepam 5 Mg Tab) 2.5 mg PO Q8HR PRN PRN Reason: Mild Spasms Last Admin: 08/04/20 00:46 Dose: 2.5 mg Documented by: Hydromorphone HCl (Hydromorphone 0.2 Mg/1 Ml Syringe) 0.2 mg IVP Q3HR PRN PRN Reason: Pain Scale 4 to 6 Hydromorphone HCl (Hydromorphone 0.5 Mg/0.5 Ml Syringe) 0.125 mg IVP Q3HR PRN PRN Reason: Pain Scale 1 to 3 Hydromorphone HCl (Hydromorphone 0.5 Mg/0.5 Ml Syringe) 0.5 mg IVP Q3HR PRN PRN Reason: Pain Scale 7 to 10 Cefazolin Sodium 1,000 mg/ (Sodium Chloride) 50 mls @ 100 mls/hr IVPB Q8HR [facility] Last Admin: 08/04/20 16:50 Dose: 100 mls/hr Documented by: Lactated Ringer's (Lactated Ringers) 1,000 mls @ 100 mls/hr IV .Q10H [facility] Last Admin: 08/04/20 14:33 Dose: 100 mls/hr Documented by: Levothyroxine Sodium (Levothyroxine 75 Mcg Tab) [address] [facility] Last Admin: 08/04/20 20:24 Dose: 75 mcg Documented by: Magnesium Hydroxide (Magnesium Hydroxide 2,400 Mg/10 Ml Cup) 2,400 mg PO DAILY PRN PRN Reason: Constipation Magnesium Oxide (Magnesium Oxide 400 Mg Tab) 400 mg PO DAILY [facility] Last Admin: 08/04/20 08:46 Dose: 400 mg Documented by: Morphine Sulfate (Morphine Sulfate 4 Mg/Ml Syringe) 4 mg IVP Q4HR PRN PRN Reason: Pain Multivitamins (Multivitamins, Thera 1 Each Tab) 1 each PO DAILY@1200 [facility] Last Admin: 08/04/20 08:46 Dose: 1 each Documented by: Naloxone HCl (Naloxone 0.4 Mg/Ml 1 Ml Vial) 0.2 mg IV Q2M PRN PRN Reason: Opioid Reversal Ondansetron HCl (Ondansetron 4 Mg/2 Ml Vial) 4 mg IVP Q8HR PRN PRN Reason: Nausea And Vomiting Senna/Docusate Sodium (Sennosides-Docusate Sodium 1 Each Tab) [address] [facility] Last Admin: 08/04/20 20:25 Dose: 2 each Documented by: Sodium Biphosphate/Sodium Phosphate (Na Phos,M-B/Na Phos,Di-Ba 133 Ml Enema) 133 ml RECTAL DAILY PRN PRN Reason: Constipation Tramadol HCl (Tramadol 50 Mg Tab) 50 mg PO Q6HR PRN PRN Reason: Pain Scale 1 to 5 Zolpidem Tartrate (Zolpidem 5 Mg Tab) 2.5 mg PO HS [facility] Last Admin: 08/04/20 20:24 Dose: 2.5 mg Documented by: Physical examination: VITAL SIGNS: 97.9, 72, 18, 111/56, 93% room air GENERAL: Laying in bed, more awake today EYES: Pupils equal. Conjunctiva normal. NECK: JVD not raised; masses not palpable. HEART: First and second heart sounds are normal; no edema. LUNGS: Respiratory rate normal; clear to auscultation. ABDOMEN: Soft, nontender, liver spleen not palpable, no masses palpable. PSYCH: Answering questions MUSCULAR skeletal: Evidence of OA in many joints, dressing over the right ankle INVESTIGATIONS, reviewed in the clinical context: White count 18 globin 10.5 potassium 3 creatinine 0.5 Previous testing White count 10.4 hemoglobin 11.8 platelets 260 potassium 5. 6 repeat 4.3 creatinine 0.62 EKG tracing personally reviewed by me-normal sinus rhythm X-ray of the right ankle showing distal tibia-fibula and ankle joint dislocation Assessment: -Possible trimalleolar fracture of the right ankle joint seconded to fall. Status post surgical repair -Chronic gait dysfunction uses a walker at baseline -Essential hypertension -Hypothyroid -Primary osteoarthritis -Mild cognitive impairment possibly due to underlying Alzheimer's dementia -Acute postprocedure blood loss anemia, suspected from surgery -Hypokalemia replace Plan: Continue IV Ancef. Continue current medication treatment plan. Replace potassium. Patient stable medically to [facility]. Thank you Dr. Jaimes
[2020-08-05] MEDS: LACTATED RINGERS 1,000 ML IV SCH ×3 (05:32→21:03)
--- NOTE | 2020-08-05 08:03 | P.PN ---
Subjective Progress Note Date: 08/05/20 Principal diagnosis: Status post right ankle ORIF The patient is an 89 year old female who is status post right ankle ORIF. Today is post op day #4. Her pain is controlled and denies any new complaints. She denies numbness, tingling or calf pain. She also denies fever, chills, chest pain, shortness of breath or abdominal pain. The patient is still confused but her confusion is improving. We are awaiting skilled rehab placement. Objective - Vital Signs Vital signs: Vital Signs Temp 97.8 F 08/05/20 02:35 Pulse 70 08/05/20 02:35 Resp 19 08/05/20 02:35 BP 151/66 08/05/20 02:35 Pulse Ox 90 L 08/05/20 02:35 Intake & Output 08/04/20 08/05/20 08/05/20 18:59 06:59 18:59 Intake Total 240 Output Total 200 Balance 40 Intake: Oral 240 Output: Post Void Residual 200 Other: # Voids 1 - Exam The patient is an 89 y/o female in no acute distress. She is alert and oriented x2. Inspection of the right lower extremity reveals a well padded splint in place. No evidence of active bleeding or drainage. Neurovascular status is intact throughout the lower extremity with motor and sensation. She can wiggle all toes and less than 2 second cap refill is present. - Labs CBC & Chem 7: 08/04/20 06:18 08/04/20 06:18 Labs: Abnormal Lab Results - Last 24 Hours (Table) 08/04/20 Range/Units 06:18 Potassium 3.0 L (3.5-5.5) mmol/L Creatinine 0.5 L (0.6-1.5) mg/dL BUN/Creatinine Ratio 36.00 H (12.00-20.00) Ratio Assessment and Plan (1) Dislocation of right ankle joint Current Visit: Yes Status: Acute Code(s): S93.04XA - DISLOCATION OF RIGHT ANKLE JOINT, INITIAL ENCOUNTER SNOMED Code(s): 000772500 (2) Fall Current Visit: Yes Status: Acute Code(s): W19.XXXA - UNSPECIFIED FALL, INITIAL ENCOUNTER SNOMED Code(s): 6696853 (3) Open fracture of right tibia and fibula Current Visit: Yes Status: Acute Priority: Medium Code(s): S82.201B - UNSP FX SHAFT OF RIGHT TIBIA, INIT FOR OPN FX TYPE I/2; S82.401B - UNSP FRACTURE OF SHAFT OF R FIBULA, INIT FOR OPN FX TYPE I/2 SNOMED Code(s): 200428850 (4) Status post ORIF of fracture of ankle Current Visit: Yes Status: Acute Code(s): Z98.890 - OTHER SPECIFIED POSTPROCEDURAL STATES; Z87.81 - PERSONAL HISTORY OF (HEALED) TRAUMATIC FRACTURE SNOMED Code(s): 007705728 Plan: 1. Continue pain control 2. Anticoagulation with Aspirin 81 mg BID 3. Continue physical therapy and ambulation. Non-weightbearing to the right lower extremity 4. Anticipate discharge to skilled rehab, likely on Thursday. She is orthopedically stable for discharge.
[2020-08-05] MEDS: CALCIUM CARB-VIT D 500MG-200UN 1 EACH TAB PO SCH (08:37)
[2020-08-05] MEDS: MULTIVITAMINS, THERA 1 EACH TAB PO SCH (08:37)
[2020-08-05] MEDS: MAGNESIUM OXIDE 400 MG TAB PO SCH (08:37)
[2020-08-05] MEDS: ASPIRIN 81 MG PO SCH ×2 (08:37→21:09)
[2020-08-05 10:25] LABS: African American GFR (CKD) >90 (>60 ml/min/1.73 sqM); Anion Gap 0 mmol/L; Blood Urea Nitrogen 12 mg/dL (7-17); Calcium 8.7 mg/dL (8.4-10.2); Carbon Dioxide 35 mmol/L (22-30); Chloride 102 mmol/L (98-107); Glucose 107 mg/dL (74-99); Non-African American GFR(CKD) >90 (>60 ml/min/1.73 sqM); Potassium 3.6 mmol/L (3.5-5.1); Sodium 137 mmol/L (137-145)
--- NOTE | 2020-08-05 20:22 | P.PN ---
Progress Note - Text Progress Note Date: 08/05/20 - Chief Complaint Right ankle injury - History of Present Illness Consultation: This is a very pleasant 89-year-old patient of Dr. Leni Turner. Patient is taking care of for Plavix when she tried to jump from the [place] bed onto the road. She missed a step and took a fall injuring her right ankle. X-ray showed a comminuted fracture of the distal tibia and fibula with dislocation of the ankle joint. Likely trimalleolar fracture. Early today patient underwent surgical repair of the same. Dressing in place. Pain is controlled. No nausea vomiting. Patient normally slowly is able to get from the hospital he denies any cardiac history. Chronic stable medical conditions include hypertension, hypothyroid, insomnia. Arthritis. No chest pain or shortness of breath. Today-laying in bed. More awake. Eating better. Pain controlled Review of systems: Was done for constitutional, cardiovascular, GI, pulmonary. relevant finding as above Active Medications Acetaminophen (Acetaminophen Tab 325 Mg Tab) 650 mg PO Q4HR PRN PRN Reason: Pain Scale 1 to 5 Hydrocodone Bitart/Acetaminophen (Hydrocodone/Apap 5-325mg 1 Each Tab) 1 each PO Q6HR PRN PRN Reason: Pain Scale 1 to 5 Hydrocodone Bitart/Acetaminophen (Hydrocodone/Apap 10-325mg 1 Each Tab) 1 each PO Q6H PRN PRN Reason: Pain Scale 6 to 10 Aspirin (Aspirin 81 Mg) 81 mg PO BID [facility] Last Admin: 08/05/20 08:37 Dose: 81 mg Documented by: Atorvastatin Calcium (Atorvastatin 10 Mg Tab) 10 mg PO HS [facility] Last Admin: 08/04/20 20:25 Dose: 10 mg Documented by: Bisacodyl (Bisacodyl 10 Mg Supp) 10 mg RECTAL DAILY PRN PRN Reason: Constipation Calcium Carbonate (Calcium Carb-Vit D 500mg-200un 1 Each Tab) 1 each PO DAILY [facility] Last Admin: 08/05/20 08:37 Dose: 1 each Documented by: Diazepam (Diazepam 5 Mg Tab) 2.5 mg PO Q8HR PRN PRN Reason: Mild Spasms Last Admin: 08/04/20 00:46 Dose: 2.5 mg Documented by: Hydromorphone HCl (Hydromorphone 0.2 Mg/1 Ml Syringe) 0.2 mg IVP Q3HR PRN PRN Reason: Pain Scale 4 to 6 Hydromorphone HCl (Hydromorphone 0.5 Mg/0.5 Ml Syringe) 0.125 mg IVP Q3HR PRN PRN Reason: Pain Scale 1 to 3 Hydromorphone HCl (Hydromorphone 0.5 Mg/0.5 Ml Syringe) 0.5 mg IVP Q3HR PRN PRN Reason: Pain Scale 7 to 10 Cefazolin Sodium 1,000 mg/ (Sodium Chloride) 50 mls @ 100 mls/hr IVPB Q8HR [facility] Last Admin: 08/05/20 16:00 Dose: 100 mls/hr Documented by: Lactated Ringer's (Lactated Ringers) 1,000 mls @ 100 mls/hr IV .Q10H [facility] Last Admin: 08/05/20 08:37 Dose: 100 mls/hr Documented by: Levothyroxine Sodium (Levothyroxine 75 Mcg Tab) 75 mcg PO [facility] Last Admin: 08/04/20 20:24 Dose: 75 mcg Documented by: Magnesium Hydroxide (Magnesium Hydroxide 2,400 Mg/10 Ml Cup) 2,400 mg PO DAILY PRN PRN Reason: Constipation Magnesium Oxide (Magnesium Oxide 400 Mg Tab) 400 mg PO DAILY [facility] Last Admin: 08/05/20 08:37 Dose: 400 mg Documented by: Morphine Sulfate (Morphine Sulfate 4 Mg/Ml Syringe) 4 mg IVP Q4HR PRN PRN Reason: Pain Multivitamins (Multivitamins, Thera 1 Each Tab) 1 each PO DAILY@1200 [facility] Last Admin: 08/05/20 08:37 Dose: 1 each Documented by: Naloxone HCl (Naloxone 0.4 Mg/Ml 1 Ml Vial) 0.2 mg IV Q2M PRN PRN Reason: Opioid Reversal Ondansetron HCl (Ondansetron 4 Mg/2 Ml Vial) 4 mg IVP Q8HR PRN PRN Reason: Nausea And Vomiting Senna/Docusate Sodium (Sennosides-Docusate Sodium 1 Each Tab) 2 each PO [facility] Last Admin: 08/04/20 20:25 Dose: 2 each Documented by: Sodium Biphosphate/Sodium Phosphate (Na Phos,M-B/Na Phos,Di-Ba 133 Ml Enema) 133 ml RECTAL DAILY PRN PRN Reason: Constipation Tramadol HCl (Tramadol 50 Mg Tab) 50 mg PO Q6HR PRN PRN Reason: Pain Scale 1 to 5 Zolpidem Tartrate (Zolpidem 5 Mg Tab) 2.5 mg PO HS [facility] Last Admin: 08/04/20 20:24 Dose: 2.5 mg Documented by: Physical examination: VITAL SIGNS: 98.3, 85, 17, 163/71, 98% on 2 L GENERAL: Laying in bed, awake EYES: Pupils equal. Conjunctiva normal. NECK: JVD not raised; masses not palpable. HEART: First and second heart sounds are normal; no edema. LUNGS: Respiratory rate normal; clear to auscultation. ABDOMEN: Soft, nontender, liver spleen not palpable, no masses palpable. PSYCH: Answering questions MUSCULAR skeletal: Evidence of OA in many joints, dressing over the right ankle INVESTIGATIONS, reviewed in the clinical context: White count 18 globin 10.5 potassium 3.6 creatinine 0.4 Previous testing White count 10.4 hemoglobin 11.8 platelets 260 potassium 5. 6 repeat 4.3 creatinine 0.62 EKG tracing personally reviewed by me-normal sinus rhythm X-ray of the right ankle showing distal tibia-fibula and ankle joint dislocation Assessment: -Possible trimalleolar fracture of the right ankle joint seconded to fall. 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 DC IV fluids. Stable. Able to DC to ECF. Thank you Dr. Jaimes
[2020-08-05] MEDS: SENNOSIDES-DOCUSATE SODIUM 1 EACH TAB PO SCH (21:07)
[2020-08-05] MEDS: ATORVASTATIN 10 MG TAB PO SCH (21:07)
[2020-08-05] MEDS: LEVOTHYROXINE 75 MCG TAB PO SCH (21:09)
[2020-08-05] MEDS: ZOLPIDEM 5 MG TAB PO SCH (21:10)
--- NOTE | 2020-08-06 09:31 | P.PN ---
Subjective Progress Note Date: 08/06/20 Principal diagnosis: Right ankle fracture Patient is seen at bedside this morning. She is postop day #5 from ORIF right ankle fracture. Her pain is controlled and denies any new complaints. She denies numbness, tingling or calf pain. Review of systems is negative for fever, chills, chest pain, shortness of breath or other Objective - Vital Signs Vital signs: Vital Signs Temp 98.0 F 08/06/20 07:39 Pulse 95 08/06/20 07:39 Resp 18 08/06/20 07:39 BP 159/79 08/06/20 07:39 Pulse Ox 90 L 08/06/20 07:39 Intake & Output 08/05/20 08/06/20 08/06/20 18:59 06:59 18:59 Intake Total 540 Balance 540 Intake: Oral 540 Other: # Voids 1 1 1 # Bowel Movements 1 - Exam Inspection shows well padded splint in place. No evidence of active bleeding or drainage. Neurovascular status is intact throughout the lower extremity with motor and sensation. She can wiggle all toes and less than 2 second cap refill is present. - Constitutional General appearance: Present: no acute distress - Labs CBC & Chem 7: 08/04/20 06:18 08/05/20 10:01 Labs: Abnormal Lab Results - Last 24 Hours (Table) 08/05/20 Range/Units 10:01 Carbon Dioxide 35 H (22-30) mmol/L Creatinine 0.41 L (0.52-1.04) mg/dL Glucose 107 H (74-99) mg/dL Assessment and Plan (1) Open fracture of right tibia and fibula Narrative/Plan: Continue pain management, DVT prophylaxis, PT- nonweightbearing, and medical management. Expect transfer to ECF in next 1-2 days. Current Visit: Yes Status: Acute Priority: Medium Code(s): S82.201B - UNSP FX SHAFT OF RIGHT TIBIA, INIT FOR OPN FX TYPE I/2; S82.401B - UNSP FRACTURE OF SHAFT OF R FIBULA, INIT FOR OPN FX TYPE I/2 SNOMED Code(s): 456384428 Time with Patient: Less than 30
[2020-08-06] MEDS: CALCIUM CARB-VIT D 500MG-200UN 1 EACH TAB PO SCH (09:46)
[2020-08-06] MEDS: MULTIVITAMINS, THERA 1 EACH TAB PO SCH (09:46)
[2020-08-06] MEDS: MAGNESIUM OXIDE 400 MG TAB PO SCH (09:46)
[2020-08-06] MEDS: ASPIRIN 81 MG PO SCH (09:46)
--- NOTE | 2020-08-06 13:16 | P.DS ---
Providers Date of admission: 08/02/20 10:19 Expected date of discharge: 08/06/20 Attending physician: Nayan Jaimes Consults: 08/01/20 15:31 Consult Physician Routine Consulting Provider: Jesus Bradshaw Consult Reason/Comments: medical management Do you want consulting provider notified?: Yes Primary care physician: Leni Turner - Discharge Diagnosis(es) (1) Open fracture of right tibia and fibula Patient was admitted to the OR on 08/01/2020 to undergo ORIF of right ankle fracture. She underwent the above procedure which she tolerated well without complication. Postoperative hospital course has remained without complication. On day of discharge she is afebrile, vital signs stable, labs within acceptable ranges, tolerating by mouth meds and diet, voiding without difficulty, positive flatus, denies abdominal pain or calf pain, pain is controlled on oral pain medication and has no new complaints. Wound is benign, neurovascular status is intact, calf is soft and nontender, abdomen soft and nontender. Review of systems is negative for numbness, tingling, fever, chills, chest pain, shortness of breath, nausea, vomiting, dizziness, headaches, slurred speech or other. Current Visit: Yes Status: Acute Priority: Medium Procedures: ORIF right ankle fracture Patient Condition at Discharge: Fair Plan - Discharge Summary Discharge Rx Participant: Yes New Discharge Prescriptions: New Aspirin [Adult Low Dose Aspirin EC] 81 mg PO BID #60 tablet. Docusate [Colace] 100 mg PO BID #60 capsule HYDROcodone/APAP 5-325MG [[place] 5-325] 1 tab PO Q4HR PRN #42 tab PRN Reason: Pain Zolpidem [Ambien] 2.5 mg PO HS #3 tab Continue Lovastatin [Mevacor] 10 mg PO HS Levothyroxine Sodium [Synthroid] 75 mcg PO HS Nunda-3 Fatty Acids/Fish Oil [Fish Oil 1,000 mg Softgel] 1 cap PO DAILY Multivitamins, Thera [Multivitamin (formulary)] 1 tab PO DAILY Calcium Carbonate/Vitamin D3 [Calcium 500-Vit D3 200 Tablet] 1 tab PO DAILY Magnesium Chloride [Mag64] 64 mg PO DAILY Discontinued Zolpidem [Ambien] 10 mg PO HS PRN PRN Reason: Insomnia Discharge Medication List Calcium Carbonate/Vitamin D3 [Calcium 500-Vit D3 200 Tablet] 1 tab PO DAILY 08/01/20 [History] Levothyroxine Sodium [Synthroid] 75 mcg PO HS 08/01/20 [History] Lovastatin [Mevacor] 10 mg PO HS 08/01/20 [History] Magnesium Chloride [Mag64] 64 mg PO DAILY 08/01/20 [History] Multivitamins, Thera [Multivitamin (formulary)] 1 tab PO DAILY 08/01/20 [History] Nunda-3 Fatty Acids/Fish Oil [Fish Oil 1,000 mg Softgel] 1 cap PO DAILY 08/01/20 [History] Aspirin [Adult Low Dose Aspirin EC] 81 mg PO BID #60 tablet.dr 08/03/20 [Rx] Docusate [Colace] 100 mg PO BID #60 capsule 08/03/20 [Rx] HYDROcodone/APAP 5-325MG [[place] 5-325] 1 tab PO Q4HR PRN #42 tab 08/03/20 [Rx] Zolpidem [Ambien] 2.5 mg PO HS #3 tab 08/06/20 [Rx] Follow up Appointment(s)/Referral(s): Leni Turner MD [Primary Care Provider] - 1-2 days Nayan Jaimes MD [STAFF PHYSICIAN] - 1 Week Activity/Diet/Wound Care/Special Instructions: Maintain splint, keep clean and dry elevate and ice right ankle F/U in office in 1 week take meds as directed non weightbearing right lower extremity Discharge Disposition: TRANSFER TO SNF/ECF
[2020-08-06 14:06] VITALS: BP 133/67; PULSE 63; RESP 17; TEMP 97.7
--- NOTE | 2020-08-07 23:24 | P.PN ---
Progress Note - Text Progress Note Date: 08/06/20 - Chief Complaint Right ankle injury - History of Present Illness Consultation: This is a very pleasant 89-year-old patient of Dr. Leni Turner. Patient is taking care of for Plavix when she tried to jump from the [place] bed onto the road. She missed a step and took a fall injuring her right ankle. X-ray showed a comminuted fracture of the distal tibia and fibula with dislocation of the ankle joint. Likely trimalleolar fracture. Early today patient underwent surgical repair of the same. Dressing in place. Pain is controlled. No nausea vomiting. Patient normally slowly is able to get from the hospital he denies any cardiac history. Chronic stable medical conditions include hypertension, hypothyroid, insomnia. Arthritis. No chest pain or shortness of breath. Today-stable. No new issues. Starting a diet. Comfortable. Review of systems: Was done for constitutional, cardiovascular, GI, pulmonary. relevant finding as above current medications reviewed in today's electronic records Physical examination: VITAL SIGNS: 97.7, 63, 17, 1 33 x 67, 97% on 2 L GENERAL: sitting up, comfortable EYES: Pupils equal. Conjunctiva normal. NECK: JVD not raised; masses not palpable. HEART: First and second heart sounds are normal; no edema. LUNGS: Respiratory rate normal; clear to auscultation. ABDOMEN: Soft, nontender, liver spleen not palpable, no masses palpable. PSYCH: Answering questions MUSCULAR skeletal: Evidence of OA in many joints, dressing over the right ankle INVESTIGATIONS, reviewed in the clinical context: White count 8 globin 10.5 potassium 3.6 creatinine 0.4 Previous testing White count 10.4 hemoglobin 11.8 platelets 260 potassium 5. 6 repeat 4.3 creatinine 0.62 EKG tracing personally reviewed by me-normal sinus rhythm X-ray of the right ankle showing distal tibia-fibula and ankle joint dislocation Assessment: -Possible trimalleolar fracture of the right ankle joint seconded to fall. Status post surgical repair -Chronic gait dysfunction uses a walker at baseline -Essential hypertension -Hypothyroid -Primary osteoarthritis -Mild cognitive impairment possibly due to underlying Alzheimer's dementia -Acute postprocedure blood loss anemia, suspected from surgery -Hypokalemia-corrected Plan: stable. Continue current medication. Follow-up with PCP. Thank you Dr. Jaimes
== END 2020-08-06 15:35 | DRG 493 ==
LOC: EC 00:55 → 4SSUR 02:15 → OBSVTOIN 08-02 10:19 → 4SSUR 08-03 22:53
PROVIDERS: ADMIT Orthopaedic Surgery Sports Medicine; ATTEND Orthopaedic Surgery Sports Medicine
PROC: 0QSG04Z Reposition Right Tibia with Internal Fixation Device, Open Approach (ICD-10-PCS; principal; 2020-08-02)
PROC: 0QSJ04Z Reposition Right Fibula with Internal Fixation Device, Open Approach (ICD-10-PCS; principal; 2020-08-02)
DX: S82.851B Displaced trimalleolar fracture of right lower leg, initial encounter for open fracture type I or II (principal); D62 Acute posthemorrhagic anemia; E03.9 Hypothyroidism, unspecified; I10 Essential (primary) hypertension; G47.00 Insomnia, unspecified; E87.6 Hypokalemia; W01.0XXA Fall on same level from slipping, tripping and stumbling without subsequent striking against object, initial encounter; R29.6 Repeated falls; Z60.2 Problems related to living alone; M19.91 Primary osteoarthritis, unspecified site; G30.9 Alzheimer's disease, unspecified; F02.80 Dementia in other diseases classified elsewhere, unspecified severity, without behavioral disturbance, psychotic disturbance, mood disturbance, and anxiety; Z79.890 Hormone replacement therapy; Z91.81 History of falling; Z90.49 Acquired absence of other specified parts of digestive tract; Z98.890 Other specified postprocedural states
CPT/HCPCS: 36415; 80048; 80051; 80053; 82550; 83735; 84100; 84484; 85025; 85610; 85730; 93005; 96361; 96365; 96366; 96375; 99285